=== PATIENT | female | born 1950 | race Caucasian/White ===

== ENCOUNTER → 2023-08-18 10:19 | Outpatient (REF) | payer BC, SELFPAY | LOC: RAD 10:19 | PROVIDERS: ATTENDING PHYSICIAN Internal Medicine | DX: T14.90XA Injury, unspecified, initial encounter (principal) | CPT/HCPCS: 73590 ==

== ENCOUNTER → 2024-10-18 14:05 | Outpatient (REF) | payer MEDICARE, SELFPAY | LOC: RCS 14:05 | PROVIDERS: ATTENDING PHYSICIAN Nurse Practitioner; FAMILY PHYSICIAN Internal Medicine | DX: I35.0 Nonrheumatic aortic (valve) stenosis (principal); Z95.3 Presence of xenogenic heart valve | CPT/HCPCS: 93306 ==

== ENCOUNTER 2025-02-28 13:05 | Emergency (ER) | payer MEDICARE, SELFPAY ==
[2025-02-28] VITALS (7 sets, daily range): BP systolic 95–132; BP diastolic 43–74; BMI 27.6
[2025-02-28 13:45] LABS: Hematocrit 37.9 % (37.0-47.0); Hemoglobin 11.9 g/dL (12.0-16.0); Mean Corp Hgb Conc. 31.4 g/dL (33.0-37.0); Mean Corpuscular Volume 89.8 fL (81.0-99.0); Nucleated Red Blood Cells % 0 %; Platelet Count 318 10^3/uL (130-400); Red Cell Dist. Width 13.6 % (11.5-14.5)
[2025-02-28 13:53] LABS: INR 1.56; PT 18.9 Sec (11.4-14.6)
[2025-02-28 13:58] LABS: ALT (SGPT) 14 U/L (0-35); AST (SGOT) 21 U/L (14-36); Albumin 3.8 g/dl (3.5-5.0); Alkaline Phosphatase 113 U/L (38-126); Blood Urea Nitrogen 18 mg/dl (7-17); Calcium 8.6 mg/dl (8.4-10.2); Carbon Dioxide 33 mmol/L (22-30); Chloride 99 mmol/L (98-107); Glucose 114 mg/dl (70-99); Potassium 4.1 mmol/L (3.5-5.1); Sodium 138 mmol/L (135-145); Total Protein 6.6 g/dl (6.3-8.2); eGFR > 60.00
[2025-02-28 14:08] LABS: Troponin I < 0.012 ng/ml
--- NOTE | 2025-02-28 17:20 | ED.GENMED ---
History of Present Illness
General
Chief Complaint: Chest Pain
Time Seen by Provider: 02/28/25 17:19
Nursing documentation reviewed up to this point in time: agreed with
History of Present Illness
History of Present Illness:
74-year-old female presents to the ER for evaluation of left-sided chest pain along with a feeling of weakness in her bilateral arms since yesterday. Patient states that she has a history of mitral valve disease and is under the care of
[facility]. She had contacted them today but was unable to be seen prompting referral to the ER. She states that the chest pain has been pretty constant since yesterday. She denies any palpitations. She does report intermittent cough, although
not necessarily changed from baseline. She denies any change in p.o. intake. She denies any peripheral edema.
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
peripheral edema for which she is on chronic Lasix, urinary frequency. Patient reports that she has not taken her Lasix in the last 3 days as she felt very dehydrated.
Past History
Past History
ED Past Medical History: Valvular disease (Aortic stenosis) and Other (ALS, Hodgkin's lymphoma)
ED Past Surgical History: Appendectomy, and Gynecological
Social History
Tobacco: Non-smoker
Alcohol: None
Drug: None
Personal:
Living: with family
Review of Systems
Review of Systems
Allergies reviewed?: Yes
Phy Exam
Physical Exam
Physical Exam:
Patient is awake, alert, appears in no acute distress, head is NCAT, PERRL, EOMI mucous membranes moist, conjunctiva pink, heart regular rate and rhythm without murmurs or ectopy, lungs are clear to auscultation without wheezes rales or rhonchi,
surgical scar present right upper chest wall with mild abnormal chest wall movement overlying this area, no JVD, abdomen is soft and nontender on palpation, extremities without edema, GCS is 15 2+ radial pulses present symmetric, 2+ DP pulses
present symmetric
Scores
Heart Score for Chest Pain Patients
STEMI patient?: No
History: Slightly or Non-Suspicious
ECG: Normal
Age: >/= 65 years
Risk Factors: 1 or 2 Risk Factors
Troponin: </= Normal Limit
Heart Score for Chest Pain Patients: 3
Heart Score Risk: 2.5% MACE over next 6 weeks
Course
Orders/Labs/Results
Orders:
Orders
02/28/25 13:17
Electrocardiogram (*1) Urgent
Reason for Study: Chest Pain
EKG- Treatment ONCE
02/28/25 13:27
Complete Blood Count/With Diff Urgent
Comprehensive Metabolic Panel Urgent
NT-proBNP Urgent
Comment: ADDON
Prothrombin Time Urgent
Troponin I Urgent
02/28/25 17:35
Add On- LAB Urgent
Tests Added?: pro bnp
Albuterol Nebs [Ventolin Nebules] 2.5 mg INH R NOW STA
CR Chest - 2 Views Urgent
Comment:
Reason For Exam: dyspnea
02/28/25 17:54
COVID-19 Antigen Urgent
Source: Nasal Swab
02/28/25 20:03
Urinalysis Reflex To Culture Urgent
Date Specimen was Collected: 02/28/25
Time Specimen was Collected: 20:01
Urine Microscopic Reflex Cult Urgent
Urine Culture Urgent
MARK ANTHONY Source: U
Specimen Description:
Date Specimen was Collected: 02/28/25
Time Specimen was Collected: 20:01
Abnormal Lab Results
02/28/25 02/28/25
13:27 20:03
Hgb 11.9 L g/dL
(12.0-16.0)
MCHC 31.4 L g/dL
(33.0-37.0)
Absolute Lymphs (auto) 0.6 L 10^3/uL
(1.2-3.4)
Neutrophils % 79.7 H %
(42.2-75.2)
Lymphocytes % 9.6 L %
(20.5-51.1)
PT 18.9 H Sec
(11.4-14.6)
Carbon Dioxide 33 H mmol/L
(22-30)
BUN 18 H mg/dl
(7-17)
Glucose 114 H mg/dl
(70-99)
Ur Occult Blood Reflex 1+ A
(Negative)
Leukocyte Esterase Rfl 1+ A
(Negative)
Urine WBC (Reflex) 26-30 A /HPF
(0-5)
Urine Bacteria (Reflex) Moderate A
(Negative)
Urine Albumin (Reflex) 2+ A
(Neg - Trace)
02/28/25 13:27
02/28/25 13:27
Labs are reassuring, hemoglobin similar to prior from 11/07/2020, no indication for transfusion. Kidney function preserved. Troponin negative which is very reassuring given pain has been present for more than 12 hours. COVID-negative
Vital Signs
Initial and Last Documented VS:
Initial Vital Signs
Temp Pulse Resp BP Pulse Ox
98 F 95 20 129/56 96
02/28/25 13:13 02/28/25 13:13 02/28/25 13:13 02/28/25 13:13 02/28/25 13:13
Last Documented Vital Signs
Temp Pulse Resp BP Pulse Ox
97.9 F 99 27 118/49 95
02/28/25 15:20 02/28/25 21:30 02/28/25 21:30 02/28/25 21:00 02/28/25 21:30
MDM/Problems Addressed
Differential Diagnosis Includes:
Differential diagnosis to consider but not limited to occult infection, electrolyte dyscrasia, anemia, valvular disease, CHF, acute renal failure along with other etiologies considered
Chronic conditions affecting care:
See HPI
*Pulse Oximetry
SaO2: 97
Oxygen Mode of Delivery: Room air
Patient hypoxic: no
*EKG
Interpreted by ED Provider?: Yes (I independently viewed and interpreted twelve-lead EKG showing normal sinus rhythm, rate 86, normal axis, low voltage QRS, incomplete right bundle branch block, no ST elevation, this is an abnormal tracing without
evidence for acute ischemia, no significant change compared to prior from 11/07/2020)
*Lehr Stripper Interpretation
Rate: normal (I independently viewed interpreted rhythm strip showing normal sinus rhythm, incomplete right bundle branch block, no ectopy)
*Critical Care Note
Total Time (30-74mins, 75-104mins- exclusive of procedures): Not Applicable
Update Note
Update Note:
I discussed with patient full evaluation in the emergency department. I discussed with patient no evidence for acute ACS based on normal troponin. I discussed with her possible admission to the hospital for further evaluation versus discharge home
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 I also discussed with patient urinalysis which likely reflects contaminated sample (was obtained with a pure wick) as opposed to infection. Patient is having no urinary symptoms and would
agree with plan for continued monitoring only. Patient would prefer to be discharged home. I discussed with patient need to return for any worsening symptoms or concern. She expressed understanding of plan and has no questions at the current time.
ED Attending Note
-
Portions of this chart may have been created with voice recognition software.� Occasional wrong word or��sound alike� substitutions may have occurred due to the inherent limitations of voice recognition software.
Discharge Plan
Departure
Patient Disposition: Home (Routine Discharge)
Date of Disposition: 02/28/25
Time of Disposition: 21:33
Patient with high blood pressure during this ER visit?: No
Discharge Problem:
Weakness, Chest pain
Instructions: Chest Pain DCA Follow Up
Prescriptions:
No Action
levothyroxine [Synthroid] 100 MCG tablet
100 mcg PO DAILY
sertraline 50 MG tablet
50 mg PO DAILY@1999
albuterol sulfate 2.5 MG/3 ML solution for nebulization
2.5 mg inhalation PRN PRN (Reason: sob)
pantoprazole 40 MG tablet,delayed release (DR/EC)
40 mg PO DAILY
furosemide 20 MG tablet
40 mg PO DAILY
albuterol sulfate [Proventil HFA] 90 MCG/PUFF HFA aerosol inhaler
2 puff inhalation PRN PRN (Reason: sob)
phenylephrine HCl [Sudafed PE] 10 MG tablet
10 mg PO PRN PRN (Reason: congestion)
prucalopride [Motegrity] 2 MG tablet
2 mg PO DAILY
Loratadine [Claritin] 10 MG Tablet
10 mg PO DAILY@1999
metoprolol succinate 25 MG tablet extended release 24 hr
12.5 mg PO DAILY
apixaban [Eliquis] 5 MG tablet
5 mg PO BID
polyethylene glycol 3350 [Miralax] 119 GM powder
119 gm PO PRN PRN (Reason: constipation)
ipratropium bromide 1 SPRAY spray,non-aerosol
1 spray intranasal PRN PRN (Reason: runny nose)
acetaminophen 325 MG tablet
650 mg PO Q4HPRN PRN (Reason: FIGUEROA, mild pain, or fever >101F) 0RF
Referrals:
Ivan Diaz MD [Family Provider, Internal Medicine]
Activity Restrictions/Additional Instructions:
Continue taking your current medications. Please follow-up with Dr. Sebastian tomorrow-call the office to schedule appointment for reevaluation and further care. Return to the ER for any concerns
Interventions
Interventions:
*Risk Screen - Suicide Last Done: 02/28/25 17:49
*General Assessment Last Done: 02/28/25 17:48
*Neglect/Abuse Screening Last Done: 02/28/25 17:49
*ED- Fall Risk Assessment Last Done: 02/28/25 17:48
*ED COVID-19 Vaccine History Last Done: 02/28/25 17:48
*ED Influenza Vaccine History Last Done: 02/28/25 17:48
*Nursing Disposition Last Done: 02/28/25 22:07
ED- Cardiac Assessment Last Done: 02/28/25 18:01
Discharge Date and Time
Discharge Date/Time: 02/28/25 22:08
Print Language: URDU
[2025-02-28 18:19] LABS: COVID-19 Antigen Negative (Negative)
[2025-02-28] MEDS: VENTOLIN NEBULES 2.5 MG INH (19:06)
[2025-02-28 20:10] LABS: Urine Character Clear (Clear)
[2025-02-28 20:27] LABS: Urine Squamous Cell >30 /LPF (Few)
[2025-02-28 20:28] LABS: Urine Red Blood Cell 0-2 /HPF (0-2)
[2025-02-28 20:29] LABS: Urine White Cell 26-30 /HPF (0-5)
== END 2025-02-28 22:08 | disposition home or self-care (01) ==
LOC: EMR 13:05
PROVIDERS: Student in an Organized Health Care Education/Training Program; EMERGENCY PHYSICIAN Emergency Medicine; FAMILY PHYSICIAN Internal Medicine
DX: R53.1 Weakness (principal); R07.9 Chest pain, unspecified; I45.10 Unspecified right bundle-branch block; I48.91 Unspecified atrial fibrillation; I08.0 Rheumatic disorders of both mitral and aortic valves; G12.21 Amyotrophic lateral sclerosis; R60.0 Localized edema; R35.0 Frequency of micturition; Z79.01 Long term (current) use of anticoagulants; T50.1X6A Underdosing of loop [high-ceiling] diuretics, initial encounter; Z91.128 Patient's intentional underdosing of medication regimen for other reason; Z85.71 Personal history of Hodgkin lymphoma; Z90.2 Acquired absence of lung [part of]
CPT/HCPCS: 99284; 94640; 71046; 80053; 81003; 81015; 83880; 84484; 85025; 85610; 87086; 87811; 93005